=== PATIENT | female | born 1985 | race Caucasian/White ===

== ENCOUNTER 2023-07-27 15:27 | Outpatient (AMB) | payer BC, SELFPAY ==
--- NOTE | 2023-07-27 16:16 | MHC.OFFWIV ---
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 Patient states that she has had low back pain previously however feels that her low back pain has recurred secondary to a job where she is more sedentary as well as a significant weight gain. Patient has scheduled physical therapy for Wednesday morning however has been taking ibuprofen and she feels this has not alleviated her discomfort. Patient denies any radiation of pain into her lower extremities and denies any bladder or bowel incontinence. [facility] Social History Patient Tobacco Use Status: Never used Tobacco Review of Systems Const All systems reviewed & are unremarkable except as noted in HPI and below Reports as per HPI Eyes Reports as per HPI ENT Reports no additional complaints Card Reports no additional complaints Resp Reports no additional complaints Musc Reports back pain, Denies radiating pain into limb and Reports stiffness Neuro Reports no additional complaints Physical Exam Vital Signs: Last Vital Signs Temp 97.9 F 07/27/23 16:33 Pulse 86 07/27/23 16:33 BP 130/80 07/27/23 16:33 Pulse Ox 98 07/27/23 16:33 BMI result Body Mass Index 39.0 Const General: cooperative, healthy appearing, comfortable and in distress (holding lower back, standing throughout interview) moderate Nutritional Appearance: overweight Orientation/consciousness: patient oriented x3 Limitations: no limitations Back/Spine/Pelvis Thoracic/Lumbar Spine: thoracic and lumbar spine normal to inspection, No thoraco-lumbar ROM normal (limited by pain, no pain to palpation of the lumbar vertebral bodies), straight leg raise negative bilaterally, pain with thoraco-lumbar ROM, No thoraco-lumbar spasm, No thoracic spinal tenderness and No lumbar spinal tenderness Sacroiliac joints: bilaterally nontender Skin General skin exam: no rashes or lesions noted Neuro General: patient oriented x3 Gait exam (Neuro): Normal gait present Motor exam (neuro): 5/5 motor strength present throughout (lower extremities bilaterally) and Normal motor muscle tone present throughout Psych Appearance: grossly normal Mental Status: mental status grossly normal Insight: Good insight present (Psych) Judgement: Good judgement present (Psych) Assessment & Plan Assessment & Plan (1) Acute lumbar myofascial strain: Code(s): S39.012A - Strain of muscle, fascia and tendon of lower back, initial encounter Plan: Patient will take Aleve twice daily and will be provided with a prescription for Robaxin to take 3 times daily. Patient is encouraged to follow-up with physical therapy as previously scheduled on WednesdayAugust 02. Medications: New methocarbamol 750 mg PO Q8H 20 tabs 0RF Coding Level of Care Code New Pt Level 3 (75467) Diagnoses Acute lumbar myofascial strain S39.012A Time Spent (min) 20
[2023-07-27 16:33] VITALS: BP 130/80; PULSE 86; TEMP 36.6; O2SAT 98; BMI 39.0
== END 2023-07-27 17:02 | disposition home or self-care (01) ==
PROVIDERS: PCP Nurse Practitioner Pediatrics; Visit Provider Physician Assistant
DX: S39.012A Strain of muscle, fascia and tendon of lower back, initial encounter (principal)
CPT/HCPCS: 99203

== ENCOUNTER 2024-07-31 20:20 | Emergency (ER) | payer BC, SELFPAY ==
[2024-07-31 20:25] VITALS: BP 183/101; PULSE 148; RESP 24; TEMP 36.9; BMI 36.0
--- NOTE | 2024-07-31 20:29 | ED.GENADULT ---
HPI - General Adult General Chief complaint: Psychiatric Symptoms Stated complaint: SI/alcoholism Time Seen by Provider: 07/31/24 21:43 Source: patient Mode of arrival: ambulatory Limitations: no limitations History of Present Illness HPI narrative: Patient is a 39-year-old female who presents emergency department for evaluation. She admits to suicidal ideations without any specific plan. She states ?I just do not want to be here?. She admits to daily alcohol consumption approximately 16-20 oz of vodka. Reports she has increased her intake over the past few months. She reports a similar presentation in 2019 with excessive alcohol usage in suicidal ideations where she received recommendation to consider partial program but she decided not to. She reports a few months ago she had 17 days of sobriety from alcohol and 1 other time previously for about 1 month, has had no history of DT/alcohol withdrawal seizure. She does not feel comfortable in talking with her primary care doctor regarding the way that she has been feeling. She has been compliant with her Lexapro though she does not feel that this is helpful for her, takes Xanax as needed. A few weeks ago her Focalin was discontinued and she was prescribed Concerta, she has yet to start taking this. She reports that she feels very anxious, is tearful during my initial examination. She offers no physical complaints at this time. Related Data Home Medications ?Medication ?Instructions ?Recorded ?Confirmed escitalopram oxalate 10 mg tablet 20 mg PO DAILY 07/27/23 08/01/24 etonogestrel 0.12 mg-ethinyl 1 vag ring vaginal Q3W 07/27/23 08/01/24 estradiol 0.015 mg/24 hr vaginal ring methylphenidate HCl 54 mg 54 mg PO QAM 08/01/24 08/01/24 tablet,extended release 24 hr Allergies Allergy/AdvReac Type Severity Reaction Status Date / Time No Known Allergies Allergy Verified 07/31/24 20:32 Review of Systems Review of Systems: Yes all other systems are reviewed and are negative [facility] Social History Social History Alcohol intake: current Patient Tobacco Use Status: Never used Tobacco Smoked in Last 30 Days: No Use of substances other than those prescribed or required for medical reasons: No Advance Directives: No Advance Directives Information Provided: No Do you have a plan to hurt others: No Plan Physical Exam ED Vital Signs: Vital Signs - 24 hr 07/31/24 20:25 07/31/24 21:49 08/01/24 04:21 Temperature 98.5 F 98.7 F Pulse Rate 148 H 123 H 96 Respiratory Rate 24 H 16 12 Blood Pressure 183/101 H 169/86 H 157/94 H Pulse Oximetry 95 97 Oxygen Delivery Method Room Air Room Air Room Air 08/01/24 06:00 Temperature 98.0 F Pulse Rate 95 Respiratory Rate 16 Blood Pressure 156/91 H Pulse Oximetry 98 Oxygen Delivery Method Room Air BMI result Body Mass Index 36.0 Appearance: Alert.?Oriented to person, place and time. Tearful, anxious Eyes: Pupils equal, round and reactive to light.? ENT: Pharynx normal.?? Neck: Normal inspection.? Neck supple.?? CVS: Heart sounds normal. Tachycardia.? Pulses normal.?? Respiratory: No respiratory distress.? Lung sounds clear to auscultation bilaterally?? Abdomen: Soft and non-tender. Normoactive bowel sounds. Skin: Skin warm and dry.? Normal skin color.? Extremities: No lower extremity edema.? Neuro: Moves all extremities spontaneously. Sensation intact bilaterally. CN II-XII intact. No focal neuro deficits. Ambulates with normal steady gait. Course Course Course Narrative: RME performed by Kiarra Merchant PA-C. Patient is a 39 year old assigned female at presenting to the emergency department with suicidal ideation. Patient states that she is struggling with alcohol use / abuse and is suicidal. Patient states tonight was her last drink. Patient states that she is drinking 20oz of alcohol a day, every day, since 2019 (COVID). Detailed physical exam and review of systems are deferred to the pediatric clinical dietician. Labs ordered. Patient placed back in the waiting room pending room availability and results. Reevaluation(s) Reevaluation #1: Stable overnight no event reported she is here with a SI and alcohol abuse we are waiting for crisis dispo Time: 08:53 Reevaluation #2: seen by crisis and agile coach cleared for d/c Time: 13:01 Medications Administered Discontinued Medications Generic Name Dose Route Start Last Admin Trade Name Freq PRN Reason Stop Dose Admin Alprazolam 0.5 mg 07/31/24 22:28 07/31/24 22:45 Alprazolam 0.5 Mg Tablet PO 07/31/24 22:29 0.5 mg ONCE ONE Administration Lorazepam 1 mg 08/01/24 08:11 08/01/24 08:48 Lorazepam 1 Mg Tablet PO 08/01/24 08:12 1 mg ONCE ONE Administration Medical Decision Making Medical Decision Making [facility] Narrative: Patient is a 39-year-old female past medical history of anxiety, depression, alcohol use disorder presenting to emergency department with suicidal ideations without a specific plan as per HPI. She is very tearful and anxious at the time of my evaluation. She is speaking clear full sentences, appears coherent. She is admits to alcohol consumption before coming to the emergency department. Drug abuse screen is negative. Ethyl alcohol level 232. Urinalysis without evidence of infection and hCG is negative. No acute electrolyte derangement, no RORO, LFTs overall unremarkable. CBC mild leukocytosis 11.8, no anemia or thrombocytopenia. No physical complaints and physical examination is benign. Differential Diagnosis Differential Diagnoses: The differential diagnosis associated with the presentation includes (See narrative above and below) Admission/Observation Consideration of admission/observation: Escalation of care including admission/observation considered Patient is being observed in the Emergency Department for depression and anxiety. Observation time was started at 23:00 on 07/31/2022. The patient is currently stable and non-toxic appearing. Observation is being initiated in the Emergency Department to allow time to help differentiate if the patient's depression and anxiety is due to Substance Induced Mood Disorder and Anxiety versus Major Depressive Disorder, Bipolar Anna, Bipolar Depression, and Schizophrenia. The patient will receive frequent psychiatric assessments from the provider as well as from nursing staff. The patient will also be monitored for the need of PRN agitation medications such as Haldol, Ativan, and Benadryl. Consult Healthcare Provider Management of the patient was discussed with: Behavioral Health Provider Lab Data [facility] Lab Attestation statement: I reviewed the patient's lab results. (See narrative above) 07/31/24 20:46 07/31/24 20:46 Labs: Lab Results 07/31/24 Range/Units 20:46 WBC 11.8 H (4.8-10.8) X10*3/uL RBC 4.31 (4.20-5.50) X10*6/uL Hgb 13.9 (12.0-16.0) g/dl Hct 40.5 (37.0-47.0) % MCV 94.0 (80.0-98.0) fL MCH 32.3 (27.0-33.0) pg MCHC 34.3 (31.0-35.0) g/dl RDW 12.6 (11.0-16.0) % Plt Count 234 (160-400) X10*3/uL MPV 9.0 L (9.4-12.3) fL Immature Gran % (Auto) 0.5 H (0.0-0.4) % Neut % (Auto) 44.2 L (45-73) % Lymph % (Auto) 47.7 H (20-40) % [place] % (Auto) 5.8 (2-11) % Eos % (Auto) 1.4 (0-4) % Baso % (Auto) 0.4 (0-2) % Lymph # (Auto) 5.6 H (1.2-4.9) X10*3/uL [place] # (Auto) 0.7 (0.1-1.2) X10*3/uL Eos # (Auto) 0.2 (0.0-0.4) X10*3/uL Baso # (Auto) 0.1 (0.0-0.2) X10*3/uL Abs Immat Gran (auto) 0.06 H (0.00-0.03) X10*3/uL Absolute Neuts (auto) 5.2 (2.0-8.3) x10*3/uL Absolute Nucleated RBC 0.000 (0.0-0.012) X10*3/uL Nucleated RBC % (auto) 0.0 (0.0-0.2) /100WBC Smear Tech's Comments VERIFIED Sodium 140 (135-145) mmol/L Potassium 3.4 (3.3-5.1) mmol/L Chloride 107 (96-108) mmol/L Carbon Dioxide 20 L (22-29) mmol/L Anion Gap 16 (12-20) BUN 14 (9-16) mg/dL Creatinine 0.84 (0.5-1.4) mg/dL Estim Creat Clear Calc 96.9 Estimated GFR > 60 Random Glucose 143 H (60-115) mg/dL Calcium 8.8 (8.4-10.2) mg/dL Total Bilirubin 0.3 (0.0-1.0) mg/dL AST 37 H (5-31) U/L ALT 29 (0-31) U/L Alkaline Phosphatase 68 (39-117) U/L Troponin I High Sens < 2.7 (<3.5-17.0) ng/L Total Protein 7.5 (6.5-8.0) g/dL Albumin 4.2 (3.5-5.0) g/dL Urine Color Yellow Urine Appearance Clear Urine pH 6.0 (5.0-9.0) Ur Specific Cass <= 1.005 (1.005-1.025) Urine Protein Negative (Neg-Trace) mg/dL Urine Glucose (UA) Negative (Negative) mg/dL Urine Ketones Negative (Negative) mg/dL Urine Blood Negative (Negative) Urine Nitrite Negative (Negative) Ur Leukocyte Esterase Negative (Negative) Urine Test NEGATIVE (NEGATIVE) Salicylates < 5.0 L (15-30) mg/dL Urine Opiates Screen Not Detected (Not Detect) Ur Buprenorphine Scrn Not Detected (Not Detect) ng/mL Ur Oxycodone Screen Not Detected (Not Detect) ng/mL Urine Methadone Screen Not Detected (Not Detect) ng/mL Urine Fentanyl Screen Not Detected (Not Detect) Acetaminophen < 3 (<30) mcg/mL Ur Barbiturates Screen Not Detected (Not Detect) Ur Phencyclidine Scrn Not Detected (Not Detect) Ur Amphetamines Screen Not Detected (Not Detect) U Benzodiazepines Scrn Not Detected (Not Detect) Urine Cocaine Screen Not Detected (Not Detect) U Marijuana (THC) Screen Not Detected (Not Detect) Ethyl Alcohol 232 mg/dL COVID-19 (BREANNA) Negative (Negative) COVID-19 Clin Com See Note External Record Review External record reviewed: Outpatient record Chronic Conditions Patient?s care impacted by: Other (Alcohol use disorder, anxiety, depression) Social Determinants Patient?s care significantly limited by Social Determinants of Health including: Alcoholism and drug addiction in family Discharge Plan Discharge Clinical Impression: Suicidal ideation, Alcohol use disorder Patient Disposition: Home, Self-Care Instructions: Depression (DC), Abuse of Alcohol (DC) Prescriptions: No Action methylphenidate HCl 54 mg tablet extended release 24hr 54 mg PO QAM etonogestrel-ethinyl estradiol 0.12-0.015 mg/24 hr ring 1 vag ring vaginal Q3W escitalopram oxalate 10 mg tablet 20 mg PO DAILY Interventions: [place]-Suicide Risk Severity Scale Last Done: 07/31/24 22:40 Print Language: Mohawk
--- NOTE | 2024-07-31 20:30 | ECG_ITS ---
Test Reason : alcohol abuse Blood Pressure : / mmHG Vent. Rate : 135 BPM Atrial Rate : 135 BPM P-R Int : 156 ms QRS Dur : 072 ms QT Int : 278 ms P-R-T Axes : 056 -51 036 degrees QTc Int : 417 ms Sinus tachycardia Left anterior fascicular block Anterolateral infarct , age undetermined Abnormal ECG No previous ECGs available Referred By: Kiarra Merchant Electronically Signed By:Alna Bacon
[2024-07-31 20:57] LABS: Basophils Absolute Auto 0.1 X10*3/uL (0.0-0.2); Basophils Percent Auto 0.4 % (0-2); Eosinophils Absolute Auto 0.2 X10*3/uL (0.0-0.4); Eosinophils Percent Auto 1.4 % (0-4); Hematocrit 40.5 % (37.0-47.0); Hemoglobin 13.9 g/dl (12.0-16.0); Imm Gran Abs Auto 0.06 X10*3/uL (0.00-0.03); Imm Gran Pct Auto 0.5 % (0.0-0.4); Lymphocytes Absolute Auto 5.6 X10*3/uL (1.2-4.9); Lymphocytes Percent Auto 47.7 % (20-40); MANUAL DIFF FLAG SCAN; Mean Corpuscular HGB Conc 34.3 g/dl (31.0-35.0); Mean Corpuscular Hemoglobin 32.3 pg (27.0-33.0); Monocytes Absolute Auto 0.7 X10*3/uL (0.1-1.2); Monocytes Percent Auto 5.8 % (2-11); Neutrophils Absolute Auto 5.2 x10*3/uL (2.0-8.3); Neutrophils Percent Auto 44.2 % (45-73); Platelet Count 234 X10*3/uL (160-400); Red Blood Count 4.31 X10*6/uL (4.20-5.50); Red Cell Distribution Width 12.6 % (11.0-16.0); SCAN SMEAR FLAG 1; White Blood Count 11.8 X10*3/uL (4.8-10.8)
[2024-07-31 20:59] LABS: Appearance Urine Clear; Color Urine Yellow; Glucose Urine UA Negative (Negative); Leukocyte Esterase Urine Negative (Negative); Nitrite Urine Negative (Negative); Specific Gravity - Urine <= 1.005 (1.005-1.025); Urine Blood Negative (Negative); Urine Ketones Negative (Negative); Urine Protein Negative (Neg-Trace)
[2024-07-31 21:00] LABS: UPreg QC Valid YES; Urine Pregnancy NEGATIVE (NEGATIVE)
[2024-07-31 21:07] LABS: Amphetamine Screen Urine Not Detected (Not Detect); Barbiturates, Urine Not Detected (Not Detect); Benzodiazepines Screen Urine Not Detected (Not Detect); Buprenorphine Scr Not Detected (Not Detect); Cannabinoid Screen Urine Not Detected (Not Detect); Cocaine Screen Urine Not Detected (Not Detect); Fentanyl, urine Not Detected (Not Detect); Methadone Screen, Urine Not Detected (Not Detect); Opiate Screen Urine Not Detected (Not Detect); Oxycodone Screen Urine Not Detected (Not Detect); Phencyclidine Screen Urine Not Detected (Not Detect)
[2024-07-31 21:10] LABS: COVID-19 Test Negative (Negative); IDNOW Serial# 08D9AD1C
[2024-07-31 21:14] LABS: Alanine Aminotransferase 29 U/L (0-31); Albumin Level 4.2 g/dL (3.5-5.0); Alkaline Phosphatase 68 U/L (39-117); Anion Gap 16 (12-20); Aspartate Amino Transferase 37 U/L (5-31); Bilirubin Total 0.3 mg/dL (0.0-1.0); Blood Urea Nitrogen 14 mg/dL (9-16); Calcium 8.8 mg/dL (8.4-10.2); Carbon Dioxide 20 mmol/L (22-29); Chloride 107 mmol/L (96-108); Creatinine Clr Calc Pharmacy 96.9; Estimated Glomerular Filt Rate > 60; Ethanol 232 mg/dL; Glucose Random 143 mg/dL (60-115); Potassium 3.4 mmol/L (3.3-5.1); Sodium 140 mmol/L (135-145); Total Protein 7.5 g/dL (6.5-8.0)
[2024-07-31 21:17] LABS: Acetaminophen LAB < 3 mcg/mL (<30); Salicylate < 5.0 mg/dL (15-30)
[2024-07-31 21:19] LABS: SLIDE REVIEW VERIFIED
[2024-07-31 21:49] VITALS: BP 169/86; PULSE 123; RESP 16; TEMP 37.1; O2SAT 95
[2024-07-31 22:07] LABS: Troponin-I High Sensitivity < 2.7 ng/L (<3.5-17.0)
[2024-07-31] MEDS: ALPRAZolam 0.5 MG TABLET PO (22:45)
--- NOTE | 2024-07-31 23:17 | PC.NURSE ---
this rn assumed care of pt, pt resting in stretcher, no acute distress noted. 1:1 sitter at bedside/ pt in green gown for safety.
[2024-08-01 04:21] VITALS: BP 157/94; PULSE 96; RESP 12; O2SAT 97
[2024-08-01 06:00] VITALS: BP 156/91; PULSE 95; RESP 16; TEMP 36.7; O2SAT 98
[2024-08-01] MEDS: LORazepam 1 MG TABLET PO (08:48)
--- NOTE | 2024-08-01 08:58 | PC.NURSE ---
Assumed care of patient at 0845, patient calm and cooperative, offering no complaints, patient aware of plan of care to continue conversation with CARE team
--- NOTE | 2024-08-01 11:11 | MHC.CARE ---
[facility] referral completed.
--- NOTE | 2024-08-01 13:01 | MHC.RECOVSUP ---
Brought recovery resources to patient, included [facility] and [facility] information in her folder. Had lengthy conversation about recovery, pathways and in particular IOPs since that was of interest to her. Reported to her attending that she had received information and was ready for discharge.
--- NOTE | 2024-08-01 13:20 | MHC.CARE ---
3 day follow up faxed and activated. Pt also put on alert with [facility].
[2024-08-01 13:35] VITALS: BP 142/84; PULSE 87; RESP 16; TEMP 36.9; O2SAT 97
== END 2024-08-01 13:46 | disposition home or self-care (01) ==
PROVIDERS: Nurse Practitioner Family; Physician Assistant Medical; Emergency Provider Emergency Medicine
DX: R45.851 Suicidal ideations (principal); F10.90 Alcohol use, unspecified, uncomplicated; Y90.7 Blood alcohol level of 200-239 mg/100 ml; Z79.899 Other long term (current) drug therapy; Z11.52 Encounter for screening for COVID-19
CPT/HCPCS: 80053; 80143; 80179; 80307; 81003; 81025; 84484; 85025; 87635; 93005; 99285; S9485

== ENCOUNTER → 2024-07-31 20:30 | Outpatient (BNV) | payer BC, SELFPAY | PROVIDERS: Emergency Provider Emergency Medicine; Visit Provider Internal Medicine Cardiovascular Disease | DX: R94.31 Abnormal electrocardiogram [ECG] [EKG] (principal) | CPT/HCPCS: 93010 ==

== ENCOUNTER 2025-07-12 15:05 | Outpatient (REF) | payer BC, SELFPAY ==
--- OUTSIDE RECORDS SUMMARY | 2025-07-12 16:29 | XMS_ITS | Clinical Summary ---
Author Organization [facility] Address [address] [place] [phone] Phone Care Team Providers Care Sonoscope Operator Name Role Phone Eliana Pat Primary Care Provider [phone] Social History Tobacco Use Types Packs/Day Years Used Date Smoking Tobacco: Never Assessed Education Answer Date Recorded Are you interested in more education? Not on keyona e 02/05/2023 Are you concerned about learning? Not on file 02/05/2023 No 02/05/2023 No 02/05/2023 Digital Access Answer Date Recorded No 03/08/2023 No 03/08/2023 No 03/08/2023 Reliable internet access at home? Not on file 03/08/2023 Device with a working camera? Not on file Comments Unknown Sex and Gender Information Value Date Recorded Sex Assigned at Female 11/05/2020 1:30 PM EST Legal Sex Female 9:15 PM EDT Gender Identity Female 11/05/2020 1:30 PM EST Sexual Orientation Not on file Plan of Treatment Not on file Medical Devices Not on file Insurance [facility] [place] [address] [place] [address] [place] [address] [place] [address] [place] [address] [place] [address] PPO EPO [facility] PPO EPO [facility] PPO EPO Care Teams Sonoscope Operator Relationship Specialty Start Date End Date Eliana Pat DO [address] [place] [id number] PCP - General 07/26/17 Additional Source Comments The information contained in this document represents components of the legal health record. It is not the complete legal health record.[facility]
--- OUTSIDE RECORDS SUMMARY | 2025-07-12 16:29 | XMS_ITS | Clinical Summary ---
Author Organization [employer] Address [address] [place] [address] Care Team Providers Care Milk Wagon Driver Name Role Phone Unavailable Primary Care Provider Unavailabl e Social History Tobacco Use Types Packs/Day Years Used Date Smoking Tobacco: Never Assessed Comments Unknown Sex and Gender Information Value Date Recorded Sex Assigned at Not on file Legal Sex Female 10:24 AM EDT Gender Identity Not on file Sexual Orientation Not on file Plan of Treatment Health Maintenance Due Date Last Done Comments Depression Screening 1985 HIV Screening 1985 SDOH Screening 1985 Disability Screening 1985 Alcohol/Substance Use Screening 1997 Tobacco Screening 1997 Family Planning (PISQ) 02/05/2000 HPV Vaccines (1 - 3-dose series) 02/05/2000 Hepatitis C Screening 2003 DTaP/Tdap/Td Vaccines (1 - Tdap) 02/05/2004 Hepatitis B Vaccines (1 of 3 - 19+ 3-dose series) 02/05/2004 Pap Smear 2006 Cervical Cancer Screening 2015 HPV/Cotest 2015 Mammogram 2025 COVID-19 Vaccine ( - 2023-2 5 season) 2025 Influenza Vaccine (#1) 2025 Zoster Vaccines (1 of 2) 2035 RSV Patients and Pa tients Aged 60 years or older (1 - 1-dose 75+ series) 02/05/2060 HIB Vaccines Aged Out No longer eligi ble based on patient's age to complete this topic Hepatitis A Vaccines Aged Out No long er eligible based on patient's age to complete this topic IPV Vaccines Aged Out No longer eligi ble based on patient's age to complete this topic Meningococcal B Vaccine Aged Out No l onger eligible based on patient's age to complete this topic Meningococcal Vaccine Aged Out No hernan diann eligible based on patient's age to complete this topic Pneumococcal Vaccine: Pediat rics (0 to 5 Years) and At-Risk Patients (6 to 49) Years Aged Out No longer eligible b ased on patient's age to complete this topic RSV under 20 months Aged Out No longe r eligible based on patient's age to complete this topic Rotavirus Vaccines Aged Out No longer eligible based on patient's age to complete this topic
--- OUTSIDE RECORDS SUMMARY | 2025-07-12 16:29 | XMS_ITS | Encounter Summary ---
Author Organization [facility] Address [address] [place] [address] Phone Care Team Providers Care Practice Specialist Name Role Phone Eliana Pat DO Primary Care Provider [phone] Encounter Details Date Type Department Care Team (Latest Contact Info) Description 11/05/2020 Transcribe Orders Virtual Department [address] [place] [id number] Celia Gutierrez PA [address] [place], [place] [id number] [email or web address] Exposure to SARS-associated coronavirus (Primary Dx) Social History Tobacco Use Types Packs/Day Years Used Date Smoking Tobacco: Never Assessed Comments Unknown Sex and Gender Information Value Date Recorded Sex Assigned at Female 11/05/2020 1:30 PM EST Legal Sex Female 9:15 PM EDT Gender Identity Female 11/05/2020 1:30 PM EST Sexual Orientation Not on file documented as of this encounter Plan of Treatment Not on file documented as of this encounter Results * COVID-19 PCR Order (11/05/2020 1:36 PM EST) COVID Testing Status Specimen received in analyzing lab. Results should be available within 24 to 48 hrs. [facility] Symptomatic? NO [facility] 11/05/2020 1:36 PM EST 11/05/2020 5:58 PM EST us Celia ERAZO BODY FLUIDS AND STOOLS ORDERA BLES Final Result [facility] [address] [place] [address] [facility] [address] [place] [address], [place] [id number] documented in this encounter Visit Diagnoses Diagnosis Exposure to SARS-associated coronavirus- Primary documented in this encounter Additional Health Concerns Infection Onset Date Last Indicated Resolved Time CoV-Risk 11/02/2020 11/02/2020 11/12/2020 1:25 AM EST CoV-Exposed Comment:Recent close contact documented in the COVID-19 PCR/PRO order 11/02/2020 11/02/2020 11/09/2020 1:[address] documented as of this encounter Care Teams Practice Specialist Relationship Specialty Start Date End Date Eliana Pat DO [address] [place] [address] PCP - General 07/26/17 documented as of this encounter Additional Source Comments The information contained in this document represents components of the legal health record. It is not the complete legal health record.[facility]
--- OUTSIDE RECORDS SUMMARY | 2025-07-12 16:29 | XMS_ITS | Encounter Summary ---
Author Organization [facility] Address [address] [place] [address] Phone Care Team Providers Care Individual Pension Adviser Name Role Phone Eliana Pat DO Primary Care Provider [phone] Encounter Details Date Type Department Care Team (Late st Contact Info) Description 11/02/2020 Transcribe Orders Virtual Department [address] [place] [address] Radha Wallace, WARP HANGER [address] [place], [place] [id number] Exposure to SARS virus (Primary Dx); Cough; Runny nose; Nasal congestion; Headache, unspecified headache type Social History Tobacco Use Types Packs/Day Years [...] this encounter Results * COVID-19 PCR Order (11/02/2020 10:48 AM EST) COVID Testing Status Specimen received in analyzing lab. Results should be available within 24 to 48 hrs. [facility] Symptomatic? YES [facility] 11/02/2020 10:4 8 AM EST 11/02/2020 1:45 PM EST us Radha Wallace NP BODY FLUIDS AND STOOLS ORDER JOSE Final Result Performing Organization Address City/State/ZIP Co in Phone Number [facility] [address] [place] [address] [facility] [address] [place] [id number] documented in this encounter Visit Diagnoses Diagnosis Exposure to SARS virus- Primary Exposure to SARS-associated coronavirus Cough Runny nose Other diseases of nasal cavity and sinuses Nasal congestion Other diseases of nasal cavity and sinuses Headache, unspecified headache type documented in this encounter Additional Health Concerns Infection Onset Date Last Indicated Resolved Time CoV-Risk 11/02/2020 11/02/2020 11/12/2020 1:25 AM EST CoV-Exposed Comment:Recent close contact documented in the COVID-19 PCR/PRO order 11/02/2020 11/02/2020 11/09/2020 1:[address] documented as of this encounter Care Teams Individual Pension Adviser Relationship Specialty Start Date End Date Eliana Pat DO [address] [place] [address] PCP - General 07/26/17 documented as of this encounter Additional Source Comments The information contained in this document represents components of the legal health record. It is not the complete legal health record.[facility]
--- OUTSIDE RECORDS SUMMARY | 2025-07-12 16:29 | XMS_ITS | Patient Health Record ---
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 Name Role Phone JUAN VASQUEZ Unavailable [phone] Allergies No Known Allergies Reason For Referral No Information Medications Medication SIG (Take, Route, Frequency, Duration) Notes Start Date End Date Status NuvaRing 0.12-0.015 MG/24HR Ring 1 ring Vaginal Insert for 4 weeks at a time and insert new ring immediately for extended cycling; Duration: 84 days 04/25/2025 Active Escitalopram Oxalate Active Etonogestrel-Ethinyl Estradiol Vaginal ring Active Social History Sex Assigned At : Social History Observation Description Sex Assigned At Female Social History HIV Risk Assessment Social Info Question Answer Notes Additional Questions Is an HIV Risk Asse ssment being conducted? No Reproductive Life Plan: Social Info Question Answer Notes Reproductive Life Plan: Do you want to have chil dren? No, I don't want to have children How sure are you that you will be able to use your control method without any problems? Very sure People's plans change. Is it possible you or your partner could ever decide to become ? No Human Trafficking: Social Info Question Answer Notes Human Trafficking Experienced: No PrEP for HIV: Social Info Question Answer Notes PrEP for HIV Is the client tian schmitt in beginning/continuing PrEP for HIV? No Sexual History: Social Info Question Answer Notes Sexual History: Sexual History Reviewed: Partner s, Practices, Protection/Past STIs Currently sexually active? No When you are sexually active, who are your partners? Men Your sexual activities include: no sexual activity Do you use condoms? No Date of last unprotected intercourse: 10/11/2016 Number of partners in past 3 months: 0 Number of partners in past year: 0 Does your partner(s) currently have any STIs? No Counseling Provided: Social Info Question Answer Notes Counseling Provided Please indicate the length of time, in minutes, that counseling was provided. 8 Counseling Was Provided By: daisy Drugs/Alcohol: Social Info Question Answer Notes Drug/Alcohol Use Do you or have you used drugs? No Do you or have you used alcohol? Yes, currently Client states she has a drinking problem and is currently dealing with it. States she has support/ declines any referral Have you ever had more than 4 (women) or 6 (men) drinks at one time in the past year? Yes Food Access: Social Info Question Answer Notes Food Access The Client's current access to food is Secure Food Access Relationships: Social Info Question Answer Notes Relationships Has the client exper ienced any of the following: Client has never experienced harmful relationships Housing Social Info Question Answer Notes Housing The client's current living situation is: stable housing Tobacco Use: Social Info Question Answer Notes Tobacco Use: Do you/have you used tobacco? No Tobacco Smoking Status Unknown if ever smoked Vital Signs Blood pressure diastolic 58 mm Hg 04/25/2025 Height 5'3 in 04/25/2025 Blood pressure systolic 126 mm Hg 04/25/2025 Weight 200.7 lbs 04/25/2025 BMI 35.55 kg/m2 04/25/2025 Encounters Encounter Location Date Provider Diagnosis [address] [id number] 04/25/2025 JUAN VASQUEZ Encounter for othe r general counseling and advice on contraception Z30.09 ; Encounter for surveillance of other contraceptives Z30.49 and Counseling, unspecified Z71.[address] [id number] 04/25/2025 JUAN VASQUEZ Assessments Encounter Date Diagnosis (ICD Code) Assessment Notes Treatment Notes Treatment Clinical Notes Section Notes 04/25/2025 Encounter for other general counseling and advice on contraception (ICD-10 - Z30.09) Spent 20 minutes doing the following: Chart Prep Obtaining/rev iewing history Performing medically necessary exam Counseling/Co ordination of Care Documenting the visit Educating the patient Ordering medication/te st/procedures New Patient: [id number] 15 Minutes 04/25/2025 Encounter for surveillance of other contraceptives (ICD-10 - Z30.49) No CI's to continue with CHCs. Reviewed benefits, risks and ACHES. May quick start with BUM x 7 days if sexually active and risk for . Reviewed the option to continue with extended cycling but don't have to have a bleed every 3 months. Can do once a year or as needed with spotting, ring free for 3-7 days. Spent 20 minutes doing the following: Chart Prep Obtaining/rev iewing history Performing medically necessary exam Counseling/Co ordination of Care Documenting the visit Educating the patient Ordering medication/te st/procedures New Patient: [id number] 15 Minutes 04/25/2025 Counseling, unspecified (ICD-10 - Z71.9) Spent 20 minutes doing the following: Chart Prep Obtaining/rev iewing history Performing medically necessary exam Counseling/Co ordination of Care Documenting the visit Educating the patient Ordering medication/te st/procedures New Patient: [id number] 15 Minutes 04/25/2025 Other Pap screening every 3-5 years pending if HPV screening was done or not Spent 20 minutes doing the following: Chart Prep Obtaining/rev iewing history Performing medically necessary exam Counseling/Co ordination of Care Documenting the visit Educating the patient Ordering medication/te st/procedures New Patient: [id number] 15 Minutes Plan Of Treatment No Information Insurance Providers Payer Name Payer Address Payer Phone Subscriber Number Group Number Insured Name Patient Relationship to Insured Coverage Start Date Coverage End Date [employer] [address] [place] [address] [id number] Laisha Roche Self - patient is the insured Medical (General) History Medical History History ICD Code Eating disorder asthma Mental health concerns Depression/Anxiety, ? PMDD, on NR after SI episodes in 2017 or 2017
== END 2025-07-12 15:06 | disposition home or self-care (01) ==
LOC: HO.MAMMO 15:05
PROVIDERS: PCP Nurse Practitioner Community Health; Visit Provider Nurse Practitioner Community Health
DX: Z12.31 Encounter for screening mammogram for malignant neoplasm of breast (principal)
CPT/HCPCS: 77063; 77067

== ENCOUNTER → 2025-07-12 15:15 | Outpatient (BNV) | payer BC, SELFPAY | PROVIDERS: PCP Nurse Practitioner Community Health; Visit Provider Internal Medicine | DX: Z12.31 Encounter for screening mammogram for malignant neoplasm of breast (principal) | CPT/HCPCS: 77063; 77067 ==